=== PATIENT | male | born 2000 | race Caucasian/White ===

== ENCOUNTER 2024-03-28 22:05 | Emergency (ER) | payer SELFPAY ==
[~2024-03-28] VITALS: Ht 175.3 cm; Wt 86.2 kg
[2024-03-28] MEDS: LIDOCAINE HCL 1% LOCAL INJ 20 ML VIAL INJ ONE (22:36)
[2024-03-28 22:38] VITALS: PULSE 69; RESP 16; TEMP 98.4
[2024-03-28] MEDS ORDERED: CEPHALEXIN500 MG PO (22:51)
[2024-03-28 23:23] VITALS: BP 135/78; PULSE 69; RESP 16; TEMP 98.4; O2SAT 97
== END 2024-03-28 23:23 | disposition home or self-care (01) ==
LOC: FSED 22:11
DX: S91.312A Laceration without foreign body, left foot, initial encounter (principal); W25.XXXA Contact with sharp glass, initial encounter; Y93.01 Activity, walking, marching and hiking; Y92.89 Other specified places as the place of occurrence of the external cause
CPT/HCPCS: 12001; 73630; 99283; J2001